=== PATIENT | female | born 1945 | race Caucasian/White ===

== ENCOUNTER 2020-10-14 11:30 | Emergency (ER) | payer OTHER, BC ==
[2020-10-14] MEDS ORDERED: IBU800 MG PO (14:17)
== END 2020-10-14 14:24 | disposition home or self-care (01) ==
LOC: ER1 11:30
DX: M25.552 Pain in left hip (principal); I25.10 Atherosclerotic heart disease of native coronary artery without angina pectoris; E11.9 Type 2 diabetes mellitus without complications
CPT/HCPCS: 73502; 96374; 99283; J1100

== ENCOUNTER → 2020-11-25 | Outpatient (CLI) | payer OTHER ==
[~2020-11-25] MED LIST: ATORVASTATIN CA40 MG PO; CIPROFLOXACIN500 M1 PO; CLOPIDOGREL75 MG PO; CYANOCOBAL1000 MCG/1 IM; ECOTRIN81 MG PO; IBU800 MG PO; JANUMET 50-5001 EACH PO; LEVEMIR100 UNIT/1 SC; METOPROLOL TART25 MG PO; NITROSTAT0.4 MG SL; NOVOLOG100 UNIT/1 SC; PEPCID20 MG PO; RANEXA500 MG PO; TRAMADOL HCL50 MG PO; VITAMIN D31250 MCG PO; XANAX0.5 MG PO
== END ==
LOC: HEART 5 07:43
DX: Z01.818 Encounter for other preprocedural examination (principal); I25.10 Atherosclerotic heart disease of native coronary artery without angina pectoris; R06.02 Shortness of breath; R93.1 Abnormal findings on diagnostic imaging of heart and coronary circulation
CPT/HCPCS: 78452; A9502; J2785

== ENCOUNTER → 2021-02-11 | Outpatient (CLI) | payer OTHER ==
[2021-02-11 13:08] LABS: HEMOGLOBIN 11.1 gm/dl (12.3-15.3); RED BLOOD COUNT 3.62 M/UL (4.00-5.10); WHITE BLOOD COUNT 5.7 K/UL (4.5-11.0)
== END ==
LOC: LAB 12:32
PROVIDERS: Internal Medicine Cardiovascular Disease
DX: R94.39 Abnormal result of other cardiovascular function study (principal); I10 Essential (primary) hypertension; I25.119 Atherosclerotic heart disease of native coronary artery with unspecified angina pectoris
CPT/HCPCS: 36415; 71046; 80048; 85025

== ENCOUNTER 2021-02-15 08:04 | Outpatient (CLI) | payer OTHER ==
[~2021-02-15] VITALS: Ht 165.1 cm; Wt 78.0 kg
[~2021-02-15 08:04] MED LIST changes: -ATORVASTATIN CA40 MG PO; -CIPROFLOXACIN500 M1 PO; -CLOPIDOGREL75 MG PO; -CYANOCOBAL1000 MCG/1 IM; -ECOTRIN81 MG PO; -JANUMET 50-5001 EACH PO; -LEVEMIR100 UNIT/1 SC; -METOPROLOL TART25 MG PO; -NITROSTAT0.4 MG SL; -NOVOLOG100 UNIT/1 SC; -PEPCID20 MG PO; -RANEXA500 MG PO; -TRAMADOL HCL50 MG PO; -VITAMIN D31250 MCG PO; -XANAX0.5 MG PO
[2021-02-15] MEDS ORDERED: ECOTRIN81 MG PO (09:23)
[2021-02-15] MEDS ORDERED: ATORVASTATIN CA40 MG PO (09:24)
[2021-02-15] MEDS ORDERED: JANUMET 50-5001 EACH PO (09:25)
[2021-02-15] MEDS ORDERED: CYANOCOBAL1000 MCG/1 IM (09:25)
[2021-02-15] MEDS ORDERED: METOPROLOL TART25 MG PO (09:26)
[2021-02-15] MEDS ORDERED: LEVEMIR100 UNIT/1 SC (09:26)
[2021-02-15] MEDS ORDERED: RANEXA500 MG PO (09:28)
[2021-02-15] MEDS ORDERED: NOVOLOG100 UNIT/1 SC (09:28)
[2021-02-15] MEDS ORDERED: NITROSTAT0.4 MG SL (09:28)
[2021-02-15] MEDS ORDERED: XANAX0.5 MG PO (09:29)
[2021-02-15] MEDS ORDERED: TRAMADOL HCL50 MG PO (09:29)
[2021-02-15] MEDS ORDERED: VITAMIN D31250 MCG PO (09:29)
[2021-02-15] MEDS ORDERED: CIPROFLOXACIN500 M1 PO (09:31)
[2021-02-15] MEDS ORDERED: PEPCID20 MG PO (09:31)
[2021-02-15 20:45] LABS: HEMOGLOBIN 10.3 gm/dl (12.3-15.3); RED BLOOD COUNT 3.3 M/UL (4.00-5.10); WHITE BLOOD COUNT 5.6 K/UL (4.5-11.0)
[2021-02-15 21:02] LABS: BUN/CREATININE RATIO 18 (0-10)
[2021-02-16 05:02] LABS: HEMOGLOBIN 10.3 gm/dl (12.3-15.3); RED BLOOD COUNT 3.37 M/UL (4.00-5.10); WHITE BLOOD COUNT 6.3 K/UL (4.5-11.0)
[2021-02-16 05:32] LABS: BUN/CREATININE RATIO 16 (0-10)
[2021-02-16] MEDS ORDERED: CLOPIDOGREL75 MG PO (14:49)
[2021-02-16] MEDS ORDERED: NITROSTAT0.4 MG SL (14:49)
== END 2021-02-16 16:07 | disposition home or self-care (01) ==
LOC: CATH 08:04 → PROG CARE 12:57 → CATH 02-16 16:07
PROVIDERS: Internal Medicine Cardiovascular Disease
DX: I25.118 Atherosclerotic heart disease of native coronary artery with other forms of angina pectoris (principal); R42 Dizziness and giddiness; E78.5 Hyperlipidemia, unspecified; E11.9 Type 2 diabetes mellitus without complications; I10 Essential (primary) hypertension; I49.5 Sick sinus syndrome; Z95.5 Presence of coronary angioplasty implant and graft; Z79.82 Long term (current) use of aspirin; Z79.2 Long term (current) use of antibiotics; Z79.4 Long term (current) use of insulin; Z79.891 Long term (current) use of opiate analgesic; Z79.899 Other long term (current) drug therapy
CPT/HCPCS: 36415; 80048; 82550; 82553; 82962; 85027; 85347; 97161; 99152; 99153; C1725; C1769; C1874; C1887; C9600; J0461; J0583; J1170; J1644; J2250; J7030; J7040; Q9965